=== PATIENT | male | born 1950 | race African-American/Black ===

== ENCOUNTER 2020-05-26 12:46 | Emergency (ER) | payer OTHER, SELFPAY ==
--- NOTE | ~2020-05-26 | CT_ITS ---
EXAMINATION: CT ABDOMEN AND PELVIS WITH CONTRAST CLINICAL INFORMATION: Rectal bleeding. COMPARISON: None TECHNIQUE: Multidetector volumetric images were obtained from the superior aspect of the liver through the pubic symphysis following administration 100 mL of Omnipaque 350 intravenous contrast. Sagittal and coronal reformatted images were obtained on the technologist's workstation. Oral contrast: No This CT examination was performed using dose optimization techniques as appropriate, variously including the following: *Automated exposure control *Adjustment of mA and/or kV according to patient size (this includes techniques or standardized protocols for targeted exams where dose is matched to indication/reason for exam; i.e. extremities or head) *Use of iterative reconstruction technique DLP: 680 mGy-cm FINDINGS: LUNG BASES: The visualized lung bases are unremarkable. LIVER, GALLBLADDER, AND BILIARY TREE: The liver is normal in size, shape, and attenuation. No focal hepatic lesion or biliary ductal dilatation is present. The gallbladder is unremarkable with no evidence of radiopaque gallstones, gallbladder wall thickening, or obvious pericholecystic inflammatory changes. PANCREAS: Unremarkable. SPLEEN: Unremarkable. ADRENAL GLANDS: There is an enhancing 1.3 x 0.8 cm nodule at the left adrenal gland. Adrenal glands are otherwise normal. KIDNEYS AND URETERS: Multiple peripelvic cysts are present at the lower pole the left kidney. Contrast material is present within the renal collecting systems bilaterally with slightly limits sensitivity for small calculi. The kidneys are normal in size, shape, and attenuation. No hydronephrosis, hydroureter, or calculi seen. No perinephric stranding. BLADDER: Unremarkable. GASTROINTESTINAL TRACT: Stomach, small bowel, and colon are normal in caliber. No bowel wall thickening or surrounding inflammatory changes. Appendix is normal. No intraperitoneal free fluid or free air. No focal mass or pericolonic fat stranding are noted. ABDOMINAL WALL: No significant hernia is appreciated. LYMPH NODES: Normal. VASCULAR: No aneurysmal dilatation in the abdominal aorta and iliac arteries. PELVIC VISCERA: Prostate gland is borderline enlarged (4.9 cm transverse). OSSEOUS STRUCTURES: There is [id number] multilevel degenerative disc disease, most pronounced at L5-S1, with marked facet arthropathy at L3-L4. Disc bulge combines with the facet arthropathy at L3-L4 to produce central canal stenosis. No acute osseous findings. CT/CT abdomen pelvis w con IMPRESSION: 1. No acute causes of rectal bleeding are identified in this CT of the abdomen and pelvis. Consider follow-up colonoscopy on a nonemergent basis for more definitive exclusion of colonic lesions. 2. A 1.3 cm enhancing left adrenal nodule. If no prior studies are available for comparison at an outside institution, consider follow-up adrenal protocol CT on a nonemergent basis. 3. 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
[2020-05-26 13:12] VITALS: BP 137/77; PULSE 57; RESP 18; TEMP 36.6; O2SAT 97; BMI 27.1
[2020-05-26 17:06] LABS: Anion Gap 11 (12-20); Blood Urea Nitrogen 8 mg/dL (9-16); Calcium 8.8 mg/dL (8.4-10.2); Carbon Dioxide 26 mmol/L (22-29); Chloride 105 mmol/L (96-108); Creatinine Clr Calc Pharmacy 68.5; Estimated Glomerular Filt Rate > 60; Glucose Random 133 mg/dL (60-115); Potassium 3.9 mmol/L (3.3-5.1); Sodium 138 mmol/L (135-145)
[2020-05-26 17:08] VITALS: BP 133/90; PULSE 60; RESP 16; TEMP 37.1; O2SAT 99
[2020-05-26 17:42] LABS: Glucose Urine UA NEG (NEG); Leukocyte Esterase Urine NEG (NEG); Nitrite Urine NEG (NEG); Specific Gravity - Urine 1.025 (1.005-1.025); Urine Blood NEG (NEG); Urine Ketones NEG (NEG); Urine Protein NEG (NEG-TRACE)
[2020-05-26 17:45] LABS: Appearance Urine CLEAR; Color Urine YELLOW
--- NOTE | 2020-05-26 18:27 | ECG_ITS ---
Test Reason : RECTAL BLEED Blood Pressure : / mmHG Vent. Rate : 058 BPM Atrial Rate : 058 BPM P-R Int : 190 ms QRS Dur : 094 ms QT Int : 402 ms P-R-T Axes : 040 -01 011 degrees QTc Int : 394 ms Sinus bradycardia Otherwise normal ECG No previous ECGs available Referred By: Na Dow Electronically Signed By:OG COSTA
[2020-05-26 18:29] LABS: MANUAL DIFF FLAG NO
[2020-05-26 18:32] LABS: Basophils Percent Auto 0.5 % (0-2); Eosinophils Absolute Auto 0.1 X10*3/uL (0.0-0.4); Eosinophils Percent Auto 2.2 % (0-4); Hematocrit 38.1 % (42-52); Hemoglobin 12.8 g/dl (14.0-18.0); Imm Gran Abs Auto 0.01 X10*3/uL (0.00-0.03); Imm Gran Pct Auto 0.2 % (0.0-0.4); Lymphocytes Absolute Auto 2.1 X10*3/uL (1.2-4.9); Lymphocytes Percent Auto 51.4 % (20-40); Mean Corpuscular HGB Conc 33.6 g/dl (31.0-36.0); Mean Corpuscular Hemoglobin 30.8 pg (27.0-33.0); Mean Corpuscular Volume 91.6 fL (80-98); Mean Platelet Volume 10.8 fL (9.4-12.4); Monocytes Absolute Auto 0.5 X10*3/uL (0.1-1.2); Monocytes Percent Auto 11.1 % (2-11); Neutrophils Absolute Auto 1.4 X10*3/uL (2.0-8.3); Neutrophils Percent Auto 34.6 % (45-73); Platelet Count 169 X10*3/uL (160-400); Red Blood Count 4.16 X10*6/uL (4.60-5.80); Red Cell Distribution Width 13.8 % (11.0-16.0); White Blood Count 4.1 X10*3/uL (4.8-10.8)
[2020-05-26 20:05] VITALS: BP 135/88; PULSE 60; RESP 16; O2SAT 100
[2020-05-26 20:08] LABS: INTERNATIONAL NORM RATIO 1.1 (0.9-1.1); Prothrombin Time 12.6 SEC (10.8-13.0)
[2020-05-26 20:10] LABS: Partial Thromboplastin Time 32.2 SEC (24.1-38.0)
--- NOTE | 2020-05-26 20:11 | PC.NURSE ---
PT AWAITING FOR PENDING LABS. PT DENIES ANY COMPLAINTS AT THIS TIME. EKG OBTAINED. PT ALERT, RESPIRATIONS EASY, N/L. SKIN W/D. AWAITING FOR FURTHER ORDERS.
[2020-05-26 20:23] LABS: Troponin-I High Sensitivity < 3.5 ng/L (<3.5-35.0)
[2020-05-26] MEDS: iohexoL 350 MG/ML 100 ML INFUS..BTL IV (20:26)
[2020-05-26 21:37] LABS: OBS Int Ctl Valid YES; OBS1 POS (NEG)
--- NOTE | 2020-05-26 22:13 | ED_ITS ---
HPI - General Adult General Chief complaint: General Medical Stated complaint: rectal bleeding Time Seen by Provider: 05/26/20 17:10 Source: patient Mode of arrival: ambulatory Limitations: no limitations History of Present Illness HPI narrative: 70-year-old male with past medical history of hyperlipidemia presents with several days of diarrhea and bright red blood per rectum. This diarrhea started a few days after receiving his 2nd COVID-19 vaccine. The blood is intermixed with his stool and he does see blood on his toilet paper. He does not report black tarry stools, and has some mild lower abdominal pain and cramping. He is in fantastic physical shape, works out daily. He does not report any chest pain or pressure, palpitations, shortness of breath, diaphoresis, shortness of breath on exertion, abdominal distention, nausea, vomiting, dysuria, hematuria, and edema. Onset (ago): week(s) (1) Location: abdomen Radiation: non-radiation Severity: moderate Quality: aching Pain Consistency: intermittent Exacerbating factors: movement and other (Palpation) Treatments prior to arrival: none Related Data Previous Rx's Medication Instructions Recorded ciprofloxacin HCl 500 mg PO Q12H 10 Days #20 tab 05/26/20 metronidazole [Flagyl] 500 mg PO Q8H 10 Days #30 tab 05/26/20 Allergies Allergy/AdvReac Type Severity Reaction Status Date / Time No Known Allergies Allergy Verified 05/26/20 18:26 Review of Systems Review of Systems: Constitutional: No Weight loss, No Fever, No Chills, No Night Sweats, No Fatigue, No Malaise ENT/Mouth: No Hearing loss, No Ear Pain, No Nasal Congestion, No Sinus Pain, No Hoarseness, No sore throat, No Rhinorrhea, No Swallowing Difficulty Eyes: No Eye Pain, No Swelling, No Redness, No Vision Changes Cardiovascular: No Chest Pain, No SOB, No Dyspnea on Exertion, No Orthopnea, No Edema, No Palpitations Respiratory: No Cough, No Sputum, No Wheezing, No Smoke Exposure, No Dyspnea Gastrointestinal: No Nausea, no Vomiting, positive Diarrhea, positive abdominal Pain, positive Hematochezia, No Melena Genitourinary: no irregular bleeding, No Dysuria, No Urinary Frequency, No Hematuria, No Urinary Incontinence, No Urgency, No Flank Pain, No Urinary Flow Changes, No Hesitancy Musculoskeletal: No joint pain, No Myalgias, No Joint Swelling Skin: No Skin Lesions, No rash Neuro: No Weakness, No Numbness, No Paresthesias, No Loss of Consciousness, No Dizziness, No Headache Psych: No Anxiety/Panic, No Depression, No SI/HI/AH/VH, No Social Issues Heme/Lymph: No Bruising, No Bleeding,No Lymphadenopathy Endocrine: No Polyuria, No Polydipsia, No Temperature Intolerance Yes all other systems are reviewed and are negative FORMERLY [facility], [facility] Past Medical History Attestation statement: The following information was validated with the patient. Source: old records reviewed Social History Social History Advance Directives: No Advance Directives Information Provided: Yes Physical Exam Vital Signs: Vital Signs: Last Vital Signs Temp 98.8 F 05/26/20 17:08 Pulse 60 05/26/20 20:05 Resp 16 05/26/20 20:05 BP 135/88 05/26/20 20:05 Pulse Ox 100 05/26/20 20:05 Body Mass Index 27.1 Appearance: Alert. Oriented X3. No acute distress. Eyes: Pupils equal, round and reactive to light. EOMI, sclera nonicteric ENT: Pharynx normal. Moist mucous membranes Neck: Normal inspection. Neck supple. CVS: Normal heart rate and rhythm. Pulses normal. Respiratory: No respiratory distress. Breath sounds normal. Abdomen: Soft and diffusely tender to the right lower suprapubic and left lower quadrants of the abdomen. No CVA tenderness. Skin: Skin warm and dry. Normal skin color. Normal skin turgor. Extremities: No lower extremity edema. Neuro: No motor deficit. No sensory deficit. Course Course Course Narrative: 70-year-old male with past medical history of hyperlipidemia, works out daily, retired [employer] 22 years, presents with diarrhea and rectal bleeding. He did receive the COVID-19 vaccine prior to this event, I do not feel that COVID-19 vaccine and hematochezia are related. States that the bleeding is mixed in with his stools, and on the toilet paper. Will order CBC, Chem 7, PT INR, CT scan of the abdomen with contrast for GI bleed. Guaiac is positive, H&H is 12.8/38.1, no prior lab values to compare. Patient is hemodynamically stable, vital signs within normal limits 137/77 heart rate in the 60s. EKG is normal sinus Doe which is consistent with patient's physical condition and daily workouts. Respiration rate even unlabored. At 10:[address] scan negative for diverticulitis, or colitis. However given patient's white count, hemoglobin 12.8 38.1 we will treat for active colitis. It was highly recommended that patient follow-up with Gastroenterology as an outpatient. Detailed description with patient regarding plan of care, he does understand that if bleeding continues, he develops shortness of breath, or any other concerning symptoms that he should return to the emergency department immediately. Medical Decision Making Differential Diagnosis Differential Diagnosis: GI bleed, colitis, gastroenteritis, PUD, vaccine reaction Medical Records Medical records reviewed: Yes I reviewed the patient's medical records. Lab Data Lab results reviewed: Yes I reviewed the patient's lab results. Result diagrams: 05/26/20 18:23 05/26/20 16:29 Labs: Lab Results 05/26/20 05/26/20 05/26/20 Range/Units 16:29 17:33 18:23 WBC 4.1 L (4.8-10.8) X10*3/uL RBC 4.16 L (4.60-5.80) X10*6/uL Hgb 12.8 L (14.0-18.0) g/dl Hct 38.1 L (42-52) % MCV 91.6 (80-98) fL MCH 30.8 (27.0-33.0) pg MCHC 33.6 (31.0-36.0) g/dl RDW 13.8 (11.0-16.0) % Plt Count 169 (160-400) X10*3/uL MPV 10.8 (9.4-12.4) fL Immature Gran % (Auto) 0.2 (0.0-0.4) % Neut % (Auto) 34.6 L (45-73) % Lymph % (Auto) 51.4 H (20-40) % Norman % (Auto) 11.1 H (2-11) % Eos % (Auto) 2.2 (0-4) % Baso % (Auto) 0.5 (0-2) % Lymph # (Auto) 2.1 (1.2-4.9) X10*3/uL Norman # (Auto) 0.5 (0.1-1.2) X10*3/uL Eos # (Auto) 0.1 (0.0-0.4) X10*3/uL Baso # (Auto) 0.0 (0.0-0.2) X10*3/uL Abs Immat Gran (auto) 0.01 (0.00-0.03) X10*3/uL Absolute Neuts (auto) 1.4 L (2.0-8.3) X10*3/uL Absolute Nucleated RBC 0.000 (0.0-0.012) X10*3/uL Nucleated RBC % (auto) 0.0 (0.0-0.2) /100WBC PT (10.8-13.0) SEC INR (0.9-1.1) APTT (24.1-38.0) SEC Sodium 138 (135-145) mmol/L Potassium 3.9 (3.3-5.1) mmol/L Chloride 105 (96-108) mmol/L Carbon Dioxide 26 (22-29) mmol/L Anion Gap 11 L (12-20) BUN 8 L (9-16) mg/dL Creatinine 1.10 (0.5-1.4) mg/dL Estim Creat Clear Calc 68.5 Estimated GFR > 60 Random Glucose 133 H (60-115) mg/dL Calcium 8.8 (8.4-10.2) mg/dL Troponin I High Sens (<3.5-35.0) ng/L Urine Color YELLOW Urine Appearance CLEAR Urine pH 6.0 (5.0-8.0) Ur Specific Alexander 1.025 (1.005-1.025) Urine Protein NEG (NEG-TRACE) MG/DL Urine Glucose (UA) NEG (NEG) MG/DL Urine Ketones NEG (NEG) MG/DL Urine Blood NEG (NEG) Urine Nitrite NEG (NEG) Ur Leukocyte Esterase NEG (NEG) Stool Occult Blood (NEG) 05/26/20 05/26/20 05/26/20 Range/Units 19:44 19:44 20:04 WBC (4.8-10.8) X10*3/uL RBC (4.60-5.80) X10*6/uL Hgb (14.0-18.0) g/dl Hct (42-52) % MCV (80-98) fL MCH (27.0-33.0) pg MCHC (31.0-36.0) g/dl RDW (11.0-16.0) % Plt Count (160-400) X10*3/uL MPV (9.4-12.4) fL Immature Gran % (Auto) (0.0-0.4) % Neut % (Auto) (45-73) % Lymph % (Auto) (20-40) % Norman % (Auto) (2-11) % Eos % (Auto) (0-4) % Baso % (Auto) (0-2) % Lymph # (Auto) (1.2-4.9) X10*3/uL Norman # (Auto) (0.1-1.2) X10*3/uL Eos # (Auto) (0.0-0.4) X10*3/uL Baso # (Auto) (0.0-0.2) X10*3/uL Abs Immat Gran (auto) (0.00-0.03) X10*3/uL Absolute Neuts (auto) (2.0-8.3) X10*3/uL Absolute Nucleated RBC (0.0-0.012) X10*3/uL Nucleated RBC % (auto) (0.0-0.2) /100WBC PT 12.6 (10.8-13.0) SEC INR 1.1 (0.9-1.1) APTT 32.2 (24.1-38.0) SEC Sodium (135-145) mmol/L Potassium (3.3-5.1) mmol/L Chloride (96-108) mmol/L Carbon Dioxide (22-29) mmol/L Anion Gap (12-20) BUN (9-16) mg/dL Creatinine (0.5-1.4) mg/dL Estim Creat Clear Calc Estimated GFR Random Glucose (60-115) mg/dL Calcium (8.4-10.2) mg/dL Troponin I High Sens < 3.5 (<3.5-35.0) ng/L Urine Color Urine Appearance Urine pH (5.0-8.0) Ur Specific Alexander (1.005-1.025) Urine Protein (NEG-TRACE) MG/DL Urine Glucose (UA) (NEG) MG/DL Urine Ketones (NEG) MG/DL Urine Blood (NEG) Urine Nitrite (NEG) Ur Leukocyte Esterase (NEG) Stool Occult Blood POS (NEG) Imaging Data CT scan - abdomen: Attestation: I personally reviewed and interpreted this imaging study as follows: Radiologist's impression: EXAMINATION: CT ABDOMEN AND PELVIS WITH CONTRAST CLINICAL INFORMATION: Rectal bleeding. COMPARISON: None TECHNIQUE: Multidetector volumetric images were obtained from the superior aspect of the liver through the pubic symphysis following administration 100 mL of Omnipaque 350 intravenous contrast. Sagittal and coronal reformatted images were obtained on the technologist's workstation. Oral contrast: No This CT examination was performed using dose optimization techniques as appropriate, variously including the following: *Automated exposure control *Adjustment of mA and/or kV according to patient size (this includes techniques or standardized protocols for targeted exams where dose is matched to indication/reason for exam; i.e. extremities or head) *Use of iterative reconstruction technique DLP: 680 mGy-cm FINDINGS: LUNG BASES: The visualized lung bases are unremarkable. LIVER, GALLBLADDER, AND BILIARY TREE: The liver is normal in size, shape, and attenuation. No focal hepatic lesion or biliary ductal dilatation is present. The gallbladder is unremarkable with no evidence of radiopaque gallstones, gallbladder wall thickening, or obvious pericholecystic inflammatory changes. PANCREAS: Unremarkable. SPLEEN: Unremarkable. ADRENAL GLANDS: There is an enhancing 1.3 x 0.8 cm nodule at the left adrenal gland. Adrenal glands are otherwise normal. KIDNEYS AND URETERS: Multiple peripelvic cysts are present at the lower pole the left kidney. Contrast material is present within the renal collecting systems bilaterally with slightly limits sensitivity for small calculi. The kidneys are normal in size, shape, and attenuation. No hydronephrosis, hydroureter, or calculi seen. No perinephric stranding. BLADDER: Unremarkable. GASTROINTESTINAL TRACT: Stomach, small bowel, and colon are normal in caliber. No bowel wall thickening or surrounding inflammatory changes. Appendix is normal. No intraperitoneal free fluid or free air. No focal mass or pericolonic fat stranding are noted. ABDOMINAL WALL: No significant hernia is appreciated. LYMPH NODES: Normal. VASCULAR: No aneurysmal dilatation in the abdominal aorta and iliac arteries. PELVIC VISCERA: Prostate gland is borderline enlarged (4.9 cm transverse). OSSEOUS STRUCTURES: There is [id number] multilevel degenerative disc disease, most pronounced at L5-S1, with marked facet arthropathy at L3-L4. Disc bulge combines with the facet arthropathy at L3-L4 to produce central canal stenosis. No acute osseous findings. CT/CT abdomen pelvis w con IMPRESSION: 1. No acute causes of rectal bleeding are identified in this CT of the abdomen and pelvis. Consider follow-up colonoscopy on a nonemergent basis for more definitive exclusion of colonic lesions. 2. A 1.3 cm enhancing left adrenal nodule. If no prior studies are available for comparison at an outside institution, consider follow-up adrenal protocol CT on a nonemergent basis. 3. 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 ECG Data Attestation: I personally reviewed and interpreted this ECG as follows: Prior ECG tracings: not available for review Interpretation: Vent. rate 58 BPM DE interval 190 ms QRS duration 94 ms QT/QTc 402/394 ms P-R-T axes 40 -1 11 Sinus bradycardia Otherwise normal ECG No previous ECGs available Date May 27, 2019 time 8:04 p.m. Discharge Plan Discharge Clinical Impression: Colitis, Diarrhea after vaccination Patient Disposition: Home, Self-Care Instructions: Acute Diarrhea (ED), Colitis (ED) Additional Instructions: You were evaluated for abdominal pain, diarrhea, and bleeding from the rectum. CT scan of the abdomen pelvis do not show any concerning findings however based on your symptoms we will be treating colitis. Please take Flagyl and ciprofloxacin as directed. These medications are antibiotics. Do not drink alcohol with Flagyl. You will have a serious and severe side effect. Incidental findings on her CT scan show a left adrenal nodule measuring 1.3 cm. You must have this followed up by her primary care physician on a nonemergent basis. You do have degenerative spondylosis to the lumbar spine with focal central canal stenosis at L3-L4. If bleeding persists, if you develop any shortness of breath, palpitations, or weakness please return to the emergency department for further evaluation. Please follow-up with Gastroenterology, call and let them know that you were evaluated in the emergency department for rectal bleeding. Your hemoglobin hematocrit 12.8/38.1. Thank you for choosing this emergency department for evaluation. Please follow-up with primary care physician as needed. Return to the emergency department for any new, concerning, or worsening symptoms. Prescriptions: New ciprofloxacin HCl 500 mg tablet 500 mg PO Q12H 10 Days Qty: 20 RF: 0 metronidazole [Flagyl] 500 mg tablet 500 mg PO Q8H 10 Days Qty: 30 RF: 0 Referrals: Russ Caal [Physician] - 2 days (Rectal bleeding) Interventions: ED Discharge Assessment Last Done: 05/26/20 22:45 Discharge Date/Time: 05/26/20 22:46
== END 2020-05-26 22:46 | disposition home or self-care (01) ==
PROVIDERS: Nurse Practitioner Family; Emergency Provider Emergency Medicine; PCP Internal Medicine
DX: K52.1 Toxic gastroenteritis and colitis (principal); T50.Z95A Adverse effect of other vaccines and biological substances, initial encounter; Y92.9 Unspecified place or not applicable; R93.5 Abnormal findings on diagnostic imaging of other abdominal regions, including retroperitoneum; E27.9 Disorder of adrenal gland, unspecified
CPT/HCPCS: 36415; 74177; 80048; 81003; 82272; 84484; 85025; 85610; 85730; 93005; 99283; 99284; Q9967

== ENCOUNTER 2020-09-20 06:48 | Emergency (ER) | payer OTHER, SELFPAY ==
--- NOTE | ~2020-09-20 | CT_ITS ---
EXAMINATION: CT ABDOMEN AND PELVIS WITH CONTRAST CLINICAL INFORMATION: Right lower quadrant pain, constipation COMPARISON: None TECHNIQUE: Multidetector volumetric images were obtained from the superior aspect of the liver through the pubic symphysis following administration 85 mL of Omnipaque 350 intravenous contrast. Sagittal and coronal reformatted images were obtained on the technologist's workstation. Oral contrast: No This CT examination was performed using dose optimization techniques as appropriate, variously including the following: *Automated exposure control *Adjustment of mA and/or kV according to patient size (this includes techniques or standardized protocols for targeted exams where dose is matched to indication/reason for exam; i.e. extremities or head) *Use of iterative reconstruction technique DLP: 550 mGy-cm FINDINGS: LUNG BASES: There is dependent bibasilar atelectasis. LIVER, GALLBLADDER, AND BILIARY TREE: The liver is normal in size, shape, and attenuation. No focal hepatic lesion or biliary ductal dilatation is present. The gallbladder is unremarkable with no evidence of radiopaque gallstones, gallbladder wall thickening, or obvious pericholecystic inflammatory changes. PANCREAS: Unremarkable. SPLEEN: Unremarkable. ADRENAL GLANDS: Unremarkable. KIDNEYS AND URETERS: The kidneys are normal in size, shape, and attenuation. No hydronephrosis, hydroureter, or calculi seen. No perinephric stranding. BLADDER: Unremarkable. GASTROINTESTINAL TRACT: Scattered stool and gas seen throughout the colon without significant distention. The cecum lies close to the midline. The small bowel loops are normal caliber. The appendix is visualized measuring 8 mm in diameter. No appendicolith or fat stranding seen. The IC junction is normal. ABDOMINAL WALL: No significant hernia is appreciated. LYMPH NODES: There are small mesenteric lymph nodes measuring 9 mm and less on axial image 39/2, image 36/2. VASCULAR: Unremarkable. PELVIC VISCERA: Unremarkable. OSSEOUS STRUCTURES: Degenerative disc changes with vacuum disc phenomena and mild bulge at L5-S1 disc level. No lytic or sclerotic process. CT/CT abdomen pelvis w con IMPRESSION: Moderate constipation. No obstruction. Normal appendix
[2020-09-20 07:25] VITALS: BP 144/84; PULSE 59; RESP 18; O2SAT 98; BMI 26.9
--- NOTE | 2020-09-20 07:47 | ED.ABDPAIN ---
HPI - Abdominal Pain General Chief Complaint: Abdominal Pain Stated Complaint: constipated Time Seen by Provider: 09/20/20 07:29 Source: patient Mode of arrival: ambulatory Limitations: no limitations History of Present Illness HPI narrative: 70-year-old male who presents emergency department for evaluation of constipation and abdominal pain. Patient states that his last bowel movement was on Sunday ( 4 days prior to evaluation ). He states that he has been feeling constipated. He has increased his fluid intake without any bowel movement. He states that he has taken a laxative last night but this did not help. This morning, he states he is having severe lower abdominal pain, he points to his suprapubic area when asked to localize the pain. Describes the pain as a cramping like sensation which is intermittent, the pain does radiate to his rectal area. The pain is 10/10. The pain is worse with attempted bowel movement. He states that he has had no appetite. He denied any other associated symptoms such as fever, chills, nausea, vomiting, frequency, urgency or dysuria. Related Data Previous Rx's Medication Instructions Recorded ciprofloxacin HCl 500 mg PO Q12H 10 Days #20 tab 05/26/20 metronidazole [Flagyl] 500 mg PO Q8H 10 Days #30 tab 05/26/20 Allergies Allergy/AdvReac Type Severity Reaction Status Date / Time No Known Allergies Allergy Verified 05/26/20 18:26 Review of Systems Review of Systems Yes all other systems are reviewed and are negative Physical Exam Vital Signs: Vital Signs: Last Vital Signs Temp 97.7 F 09/20/20 10:00 Pulse 58 09/20/20 10:00 Resp 18 09/20/20 10:00 BP 142/86 H 09/20/20 10:00 Pulse Ox 98 09/20/20 10:00 Body Mass Index 26.9 Const: General: cooperative and healthy appearing Orientation/consciousness: oriented to person and oriented to place Limitations: no limitations HENMT: Head: Yes normal to inspection, Yes normocephalic and Yes atraumatic Ears: external ears normal General nose exam: Normal external nose present Face and sinus: Yes normal facial exam Mouth: Normal oral and palatal mucosa present Throat: Yes posterior oropharynx normal Eyes: Periorbital: periorbital findings normal Eyelids: Yes eyelids normal Conjunctivae: conjunctivae normal Sclerae: sclerae normal Corneas: corneas normal Pupils: Equal, round and reactive pupils present Direct Ophthalmoscopy: normal light reflex Neck: Neck: Yes full ROM, Yes no lymphadenopathy, Yes no meningeal signs, Yes trachea midline and Yes supple Chest: Chest palpation & inspection: normal inspection of the chest and normal palpation of entire chest wall Resp: Effort & Inspection: normal respiratory effort and able to speak in complete sentences Auscultation: clear to auscultation bilaterally Cardio: Rate: regular rate Rhythm: regular rhythm Heart sounds: S1 normal heart sound present, S2 normal heart sound present and no murmurs GI: Inspection: Yes normal to inspection Palpation (GI): Soft to palpation, Tenderness to palpation present (GI) in the RUQ ( Moderate, no rebound), no guarding, not rigid and No hepatosplenomegaly present Auscultation: Hyperactive bowel sounds present Rectal Exam - Male: Yes heme negative stool and Yes other ( rectum is full of stool, the stool is soft, brown) : General: Yes no CVA tenderness Back/Spine/Pelvis: Back: no CVA tenderness Cervical Spine: normal cervical lordosis Thoracic/Lumbar Spine: thoracic and lumbar spine normal to inspection Skin: Lesions: no lesions Rashes: no rashes Wounds: no wounds Neuro: General: oriented to person, oriented to place and no meningeal signs Cranial nerves: Yes CN's II-XII intact bilaterally and Yes Equal, round and reactive pupils present Cognition (Neuro): normal cognition Motor exam (neuro): 5/5 motor strength present throughout Extrem: General: Yes normal to inspection and Yes full ROM Psych: Appearance: well kempt Mental Status: mental status grossly normal Speech and movement: Normal speech and movement present Affect: normal affect Attitude: cooperative Thought process: Normal thought process present Thought content: Normal thought content present Course Course Course Narrative: 70-year-old male who presents emergency department for evaluation of 4 days of constipation and Intermittent, cramping suprapubic abdominal pain which is 10/10 at its worse. The patient took a laxative last night without relief his pain. Vital signs revealed slight hypertension with a blood pressure of 144/88. Physical examination revealed very localize right lower quadrant tenderness. Rectal examination revealed that the patient's rectum was full of soft stool. Given the patient's right lower quadrant tenderness, I am concerned that he may have acute appendicitis. It is also possible that his symptoms may be secondary to constipation. I did order laboratory workup to include CBC, CMP, lipase, CT scan of the abdomen pelvis. The patient is pain will be treated with Toradol 30 mg IV. He was ordered to get normal saline x1 L. I also ordered a Fleet enema to see if this helps with his His constipation and his discomfort. 1227: Patient's laboratory evaluation revealed a slightly low WBC of 4.3 which is not think is relevant at this time. Laboratory evaluation was otherwise unremarkable. CT scan of the abdomen pelvis revealed no acute appendicitis, the patient does have stool throughout his colon. The patient did receive a Fleet's enema with a good bowel movement he is feeling significantly better. the patient was started on an outpatient bowel regimen. The patient was given verbal and printed instructions prior to discharge. The patient was advised to follow-up with their PCP in 2 days and to return to the emergency department if their symptoms get worse or if they develop any new symptoms that are concerning to them MDM - Abdominal Pain Lab Data Result diagrams: 09/20/20 08:08 09/20/20 08:08 Labs: Lab Results 09/20/20 09/20/20 09/20/20 Range/Units 08:08 08:08 08:08 WBC 4.3 L (4.8-10.8) X10*3/uL RBC 4.36 L (4.60-5.80) X10*6/uL Hgb 13.4 L (14.0-18.0) g/dl Hct 39.5 L (42-52) % MCV 90.6 (80-98) fL MCH 30.7 (27.0-33.0) pg MCHC 33.9 (31.0-36.0) g/dl RDW 13.4 (11.0-16.0) % Plt Count 160 (160-400) X10*3/uL MPV 11.2 (9.4-12.4) fL Immature Gran % (Auto) 0.2 (0.0-0.4) % Neut % (Auto) 43.7 L (45-73) % Lymph % (Auto) 35.3 (20-40) % Isabela % (Auto) 17.8 H (2-11) % Eos % (Auto) 2.5 (0-4) % Baso % (Auto) 0.5 (0-2) % Lymph # (Auto) 1.5 (1.2-4.9) X10*3/uL Isabela # (Auto) 0.8 (0.1-1.2) X10*3/uL Eos # (Auto) 0.1 (0.0-0.4) X10*3/uL Baso # (Auto) 0.0 (0.0-0.2) X10*3/uL Abs Immat Gran (auto) 0.01 (0.00-0.03) X10*3/uL Absolute Neuts (auto) 1.9 L (2.0-8.3) X10*3/uL Absolute Nucleated RBC 0.000 (0.0-0.012) X10*3/uL Nucleated RBC % (auto) 0.0 (0.0-0.2) /100WBC Sodium 140 (135-145) mmol/L Potassium 4.0 (3.3-5.1) mmol/L Chloride 108 (96-108) mmol/L Carbon Dioxide 25 (22-29) mmol/L Anion Gap 11 L (12-20) BUN 14 D (9-16) mg/dL Creatinine 1.20 (0.5-1.4) mg/dL Estim Creat Clear Calc 62.8 Estimated GFR 60 Random Glucose 112 (60-115) mg/dL Calcium 9.0 (8.4-10.2) mg/dL Total Bilirubin 0.4 (0.0-1.0) mg/dL AST 25 (5-37) U/L ALT 27 (0-40) U/L Alkaline Phosphatase 63 (39-117) U/L Total Protein 7.3 (6.5-8.0) g/dL Albumin 4.3 (3.5-5.0) g/dL Lipase 26 (8-78) U/L Discharge Plan Discharge Clinical Impression: Abdominal pain Qualifiers: Abdominal location: right lower quadrant Qualified Code(s): R10.31 - Right lower quadrant pain Constipation Qualifiers: Constipation type: unspecified constipation type Qualified Code(s): K59.00 - Constipation, unspecified Patient Disposition: Home, Self-Care Instructions: Constipation (ED) Additional Instructions: your blood work was unremarkable except for slightly low white blood count of 4300 ( normal is 4800 to 10,800 ). you should follow-up with your doctor in 2-4 weeks to have this white blood cell count repeated to make sure that is Normal. The CT scan of your abdomen pelvis was normal which is reassuring. Your pain is most likely secondary to your constipation. I want you to start the following [id number] bowel regimen to help prevent constipation: Metamucil 1 tsp in 8 oz of water twice a day for 1 month. Colace 1 pill twice a day for 1 month. If you do not have a normal bowel movement after 4 days then take Senokot extra-strength 1 pill twice a day For 3 days or until you have a bowel movement. if you do not have a bowel movement after 3 days of Senokot then use a Fleet's enema. The patient was given verbal and printed instructions prior to discharge. The patient was advised to follow-up with their PCP in 2 days and to return to the emergency department if their symptoms get worse or if they develop any new symptoms that are concerning to them Prescriptions: No Action ciprofloxacin HCl 500 mg tablet 500 mg PO Q12H 10 Days Qty: 20 RF: 0 metronidazole [Flagyl] 500 mg tablet 500 mg PO Q8H 10 Days Qty: 30 RF: 0 PMFSH Past Medical History PMFSH Narrative: Past medical history: Hypercholesterolemia. Past surgical history: None. Social history: Patient denies tobacco, alcohol and drug use. Social History Social History Advance Directives: Yes Advance Directives Information Provided: No Advance Directives on File: No
[2020-09-20] MEDS: 0.9 % Sodium Chloride 1,000 ML 999 ML IV (08:08)
[2020-09-20 08:14] LABS: MANUAL DIFF FLAG NO
[2020-09-20 08:15] LABS: Basophils Percent Auto 0.5 % (0-2); Eosinophils Absolute Auto 0.1 X10*3/uL (0.0-0.4); Eosinophils Percent Auto 2.5 % (0-4); Hematocrit 39.5 % (42-52); Hemoglobin 13.4 g/dl (14.0-18.0); Imm Gran Abs Auto 0.01 X10*3/uL (0.00-0.03); Imm Gran Pct Auto 0.2 % (0.0-0.4); Lymphocytes Absolute Auto 1.5 X10*3/uL (1.2-4.9); Lymphocytes Percent Auto 35.3 % (20-40); Mean Corpuscular HGB Conc 33.9 g/dl (31.0-36.0); Mean Corpuscular Hemoglobin 30.7 pg (27.0-33.0); Mean Corpuscular Volume 90.6 fL (80-98); Mean Platelet Volume 11.2 fL (9.4-12.4); Monocytes Absolute Auto 0.8 X10*3/uL (0.1-1.2); Monocytes Percent Auto 17.8 % (2-11); Neutrophils Absolute Auto 1.9 X10*3/uL (2.0-8.3); Neutrophils Percent Auto 43.7 % (45-73); Platelet Count 160 X10*3/uL (160-400); Red Blood Count 4.36 X10*6/uL (4.60-5.80); Red Cell Distribution Width 13.4 % (11.0-16.0); White Blood Count 4.3 X10*3/uL (4.8-10.8)
[2020-09-20] MEDS: Mineral OiL enema 133 ML ENEMA PR (08:17)
[2020-09-20] MEDS: Ketorolac Tromethamine 30 MG/ML VIAL IVPUSH (08:17)
[2020-09-20 09:03] LABS: Alanine Aminotransferase 27 U/L (0-40); Albumin Level 4.3 g/dL (3.5-5.0); Alkaline Phosphatase 63 U/L (39-117); Anion Gap 11 (12-20); Aspartate Amino Transferase 25 U/L (5-37); Bilirubin Total 0.4 mg/dL (0.0-1.0); Blood Urea Nitrogen 14 mg/dL (9-16); Carbon Dioxide 25 mmol/L (22-29); Chloride 108 mmol/L (96-108); Creatinine Clr Calc Pharmacy 62.8; Estimated Glomerular Filt Rate 60; Glucose Random 112 mg/dL (60-115); Lipase 26 U/L (8-78); Sodium 140 mmol/L (135-145); Total Protein 7.3 g/dL (6.5-8.0)
[2020-09-20] MEDS: iohexoL 350 MG/ML 100 ML INFUS..BTL IV (09:57)
[2020-09-20 10:00] VITALS: BP 142/86; PULSE 58; RESP 18; TEMP 36.5; O2SAT 98
--- NOTE | 2020-09-20 12:05 | PC.NURSE ---
PT HAD SOME RESULTS AFTER FLEETS, STATES FEELING LESS RECTAL PRESSURE.
== END 2020-09-20 12:39 | disposition home or self-care (01) ==
PROVIDERS: Emergency Provider Emergency Medicine Emergency Medical Services; PCP Internal Medicine
DX: R10.31 Right lower quadrant pain (principal); K59.00 Constipation, unspecified
CPT/HCPCS: 36415; 74177; 80053; 83690; 85025; 96361; 96374; 99284; J1885; Q9967